=== PATIENT | female | born 1970 | race Caucasian/White ===

== ENCOUNTER 2016-09-18 01:36 | Emergency (ER) | payer BC | END 2016-09-18 02:58 | disposition home or self-care (01) | LOC: ER 01:36 | DX: S43.402A Unspecified sprain of left shoulder joint, initial encounter (principal); W50.0XXA Accidental hit or strike by another person, initial encounter; Y93.72 Activity, wrestling; Y92.009 Unspecified place in unspecified non-institutional (private) residence as the place of occurrence of the external cause ==